=== PATIENT | male | born 1960 | race Caucasian/White ===

== ENCOUNTER 2025-06-28 19:03 | Emergency (ER) | payer BC, OTHER ==
[2025-06-28] MEDS ORDERED: Diphtheria,Pertussis(Acell),Tetanus Vaccine 0.5 ML Syringe ONE (19:59)
[2025-06-28] MEDS ORDERED: Lidocaine 1% with EPINEPHrine 1:100,000 20 ML MDV ONE (19:59)
[2025-06-28] MEDS: Bupivacaine 0.5%/EPINEPHrine 1:200,000 30 ML SDV INJECT ONE (20:06)
[2025-06-28] MEDS: Diphtheria,Pertussis(Acell),Tetanus Vaccine 0.5 ML Syringe IM ONE (20:26)
[2025-06-28] MEDS: Lidocaine 1% with EPINEPHrine 1:100,000 20 ML MDV INJECT ONE (20:28)
[2025-06-28] MEDS: cefTRIAXone 1 GM, Lidocaine 1% 2.1 ML IM ONE (20:32)
== END 2025-06-28 21:44 | disposition home or self-care (01) ==
LOC: JD.ED 19:03
DX: S81.811A Laceration without foreign body, right lower leg, initial encounter (principal); S80.852A Superficial foreign body, left lower leg, initial encounter; Z88.8 Allergy status to other drugs, medicaments and biological substances; Z79.82 Long term (current) use of aspirin; Z79.899 Other long term (current) drug therapy; W45.8XXA Other foreign body or object entering through skin, initial encounter; Z23 Encounter for immunization
CPT/HCPCS: 12034; 90471; 90715; 96372; 99283; J0665; J0696; J2003; J2004